=== PATIENT | male | born 1945 | race Caucasian/White ===

== ENCOUNTER 2016-11-23 09:14 | Emergency (ER) | payer MEDICARE, BC ==
[2016-11-23 09:50] VITALS: BP 185/75
--- NOTE | 2016-11-23 10:31 | UC ---
Lower Extremity/Ankle HPI - HPI Summary HPI Summary: Pt presents with c/o right foot pain. that began 1-2 weeks ago. Pt reports that pain began in his right heel, and now is panful along the bottom of his right foot. Pt reports pain is worse in the morning. 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 - Allergies/Home Medications Allergies/Adverse Reactions: Allergies Allergy/AdvReac Type Severity Reaction Status Date / Time No Known Allergies Allergy Verified 11/23/16 09:50 Home Medications: Home Medications Tamsulosin CAP* [Flomax CAP*] 0.4 mg PO DAILY 11/23/16 [History Confirmed ] oxyCODONE/Acetamin 5/325 MG* [Percocet 5/325 TAB*] 1 tab PO DAILY PRN 11/23/16 [ History Confirmed 11/23/16] PMH/Surg Hx/FS Hx/Imm Hx Previously Healthy: Yes - Surgical History Surgical History: Yes Surgery Procedure, Year, and Place: T & A, 1951, [facility]; Right knee replacement , presumably with metal;. had fluid in right lung removed july 2015, right hip replacement Spring 2016 - Family History Known Family History: Positive: Cardiac Disease Family History: R & n/C - Social History Occupation: Retired Lives: With Family Alcohol Use: Rare Substance Use Type: None Smoking Status (MU): Former Smoker Type: Pipe Amount Used/How Often: PIPE Length of Time of Smoking/Using Tobacco: 25 YEARS Have You Smoked in the Last Year: No When Did the Patient Quit Smoking/Using Tobacco: 1994 - Immunization History Most Recent Influenza Vaccination: Fall 2014 Most Recent Tetanus Shot: within last 10 years Most Recent Pneumonia Vaccination: in the last year Review of Systems Constitutional: Negative Skin: Negative Eyes: Negative ENT: Negative Respiratory: Negative Cardiovascular: Negative Gastrointestinal: Negative Genitourinary: Negative Motor: Decreased ROM - right hip, right foot Neurovascular: Negative Musculoskeletal: Arthralgia, Edema - chronic, bilateral,, Myalgia - right foot Neurological: Negative Psychological: Negative All Other Systems Reviewed And Are Negative: Yes Physical Exam Triage Information Reviewed: Yes Appearance: Well-Appearing Vital Signs: Initial Vital Signs Temp 97.8 F 11/23/16 09:42 Pulse 53 11/23/16 09:42 Resp 18 11/23/16 09:42 BP 185/75 11/23/16 09:42 Vital Signs Reviewed: Yes Eye Exam: Normal Dental Exam: Normal Neck exam: Normal Respiratory Exam: Normal Cardiovascular Exam: Normal Musculoskeletal Exam: Other Musculoskeletal: Positive: Strength Limited @ - right hip, Edema @ - bilateral 1 +, right foot, generalized swelling, tenderness right heel across plantar side of foot. Neurological Exam: Normal Psychological Exam: Normal Skin Exam: Normal Lower Extremity Course/Dx - Course Course Of Treatment: Pt has a previous scheduled appointment with Dr. Avalos. I recommended that he keep that appointment or follow up with his PCP or the orthpedic provider who did his right hip surgery in july 2016. Pt stated he wanted to keep his appointment with Dr. Avalos. - Differential Dx/Diagnosis Differential Diagnosis/HQI/PQRI: Gout, Tendonitis Provider Diagnoses: plantar faciitis right foot Discharge - Discharge Plan Condition: Stable Disposition: HOME Patient Education Materials: Plantar Fasciitis Exercises (GEN), Plantar Fasciitis (ED) Referrals: Tereso Avalos MD [Medical Doctor] - Blaine Singh MD [Primary Care Provider] - If Needed Additional Instructions: Please keep your appointment with the orthopedic provider, Dr. Avalos. If unable to keep that appointment please follow up with your PCP or return to clinic.
== END 2016-11-23 10:48 | disposition home or self-care (01) ==
LOC: UCCORT 09:14
DX: M72.2 Plantar fascial fibromatosis (principal); Z86.718 Personal history of other venous thrombosis and embolism; Z79.01 Long term (current) use of anticoagulants; Z96.651 Presence of right artificial knee joint; Z96.641 Presence of right artificial hip joint; Z87.891 Personal history of nicotine dependence
CPT/HCPCS: 99213; G0463

== ENCOUNTER 2017-03-20 09:38 | Emergency (ER) | payer MEDICARE, BC ==
--- NOTE | 2017-03-20 10:15 | UC ---
Respiratory Complaint HPI - HPI Summary HPI Summary: 71 YEAR OLD MALE PRESENTS WITH COMPLAISN OF COUGH, CHEST CONGESTION AND SORE THROAT. - History of Current Complaint Stated Complaint: COUGH, CHEST CONGESTION Time Seen by Provider: 03/20/17 10:14 Hx Obtained From: Patient Onset/Duration: Lasting Days Severity Initially: Moderate Severity Currently: Moderate Pain Scale Used: 0-10 Numeric - 4 Character: Cough: Nonproductive Alleviating Factors: Upright Position Associated Signs And Symptoms: Positive: Nasal Congestion, Sinus Discomfort - Allergies/Home Medications Allergies/Adverse Reactions: Allergies Allergy/AdvReac Type Severity Reaction Status Date / Time No Known Allergies Allergy Verified 03/20/17 10:27 Home Medications: Home Medications Glucosamine Sulfate [Glucosamine] 1,000 mg PO DAILY 03/20/17 [History Confirmed 03/20/17] PMH/Surg Hx/FS Hx/Imm Hx Previously Healthy: Yes - Surgical History Surgical History: Yes Surgery Procedure, Year, and Place: T & A, 1951, [facility]; Right knee replacement , presumably with metal;. had fluid in right lung removed july 2015, right hip replacement Spring 2016 - Family History Known Family History: Positive: None, Cardiac Disease Family History: R & n/C - Social History Alcohol Use: Rare Substance Use Type: None Smoking Status (MU): Former Smoker Type: Pipe Amount Used/How Often: PIPE Length of Time of Smoking/Using Tobacco: 25 YEARS Have You Smoked in the Last Year: No When Did the Patient Quit Smoking/Using Tobacco: 1994 - Immunization History Most Recent Influenza Vaccination: Fall 2014 Most Recent Tetanus Shot: within last 10 years Most Recent Pneumonia Vaccination: in the last year Review of Systems Constitutional: Negative Skin: Negative Eyes: Negative ENT: Sore Throat, Nasal Discharge, Sinus Congestion, Sinus Pain/Tenderness Respiratory: Cough Cardiovascular: Negative Gastrointestinal: Negative Genitourinary: Negative Motor: Negative Neurovascular: Negative Musculoskeletal: Negative Neurological: Negative Psychological: Negative All Other Systems Reviewed And Are Negative: Yes Physical Exam Triage Information Reviewed: Yes Vital Signs Reviewed: Yes Eye Exam: Normal ENT: Positive: Dental tenderness, Sinus tenderness Dental Exam: Normal Neck exam: Normal Neck: Positive: 1 Respiratory: Positive: Rhonchi, Wheezing Cardiovascular Exam: Normal Abdominal Exam: Normal Musculoskeletal Exam: Normal Neurological Exam: Normal Psychological Exam: Normal Skin Exam: Normal Respiratory Course/Dx - Differential Dx/Diagnosis Provider Diagnoses: SINUS CONGESTION. COUGH. CHEST CONGESTION Discharge - Discharge Plan Condition: Stable Disposition: HOME Prescriptions: Albuterol HFA INHALER* [Ventolin HFA Inhaler*] 1 puff INH Q6H PRN #1 mdi PRN Reason: Wheezing Azithromyxin ROBERTO (NF) [Z-Roberto (Zithromax) 250 mg tabs #6] 2 tab PO .TODAY, THEN 1 DAILY #6 tab Guaifenesin-Codeine [Cheratussin AC] 1 teasp PO BEDTIME PRN #120 ml MDD 5 ml PRN Reason: Cough LoraTADine TAB(NF) [Claritin 10 MG TAB(NF)] 10 mg PO DAILY #30 tab Patient Education Materials: Acute Cough (ED) Referrals: Blaine Singh MD [Primary Care Provider] -
[2017-03-20 10:27] VITALS: BP 163/90
== END 2017-03-20 10:38 | disposition home or self-care (01) ==
LOC: UCCORT 09:38
DX: R09.81 Nasal congestion (principal); R05 Cough; R09.89 Other specified symptoms and signs involving the circulatory and respiratory systems; Z87.891 Personal history of nicotine dependence
CPT/HCPCS: 99212; G0463

== ENCOUNTER 2017-11-23 07:01 | Day surgery (SDC) | payer MEDICARE ==
[~2017-11-23 07:01] MED LIST: Buffered Lidocaine 0.9% SYRIN* 5 ML/SYR SYRINGE INTRADERM ONE
[2017-11-23] MEDS ORDERED: ceFAZolin 2 GM PREMIX (*) 2 GM/50 ML BAG IVPB ONE (07:06)
[2017-11-23] MEDS ORDERED: Bupivacaine 0.5% PF 10 ML VIAL INJ ONE (08:48)
[2017-11-23] MEDS ORDERED: Lidocaine 2% PF* 10 ML AMP ONE ×2 (08:49→08:52)
[2017-11-23] MEDS ORDERED: fentaNYL* 50 MCG/ML 2 ML VIAL (100 MCG VIAL) ONE (09:19)
[2017-11-23] MEDS ORDERED: Propofol* 10 MG/ML 20 ML BTL IV PUSH ONE (09:22)
[2017-11-23] MEDS ORDERED: Lidocaine 2% PF * 5 ML VIAL ONE (09:30)
[2017-11-23 10:26] VITALS: BP 136/63
--- NOTE | 2017-11-24 08:49 | OP ---
DATE OF OPERATION: 11/23/17 - [facility] DATE OF : 43 SURGEON: Toni Martini MD SANITATION MANAGER: Jus Torrez PA-C PRE-OP DIAGNOSIS: Rheumatoid arthritis with fixed hammertoe deformity, left 2, 3 and 4 toes. POST-OP DIAGNOSIS: Rheumatoid arthritis with fixed hammertoe deformity, left 2 , 3, and 4 toes. OPERATIVE PROCEDURE: Excisional arthroplasty, left second, third, and fourth proximal interphalangeal joints. DESCRIPTION OF PROCEDURE: The patient was taken to the operating room. Ankle Esmarch applied. We made a transverse elliptical incision over the second, third, and fourth PIP joints. Collateral ligaments were incised to allow visualization of the joint surfaces, which were then removed with the narrow microsagittal saw blade. We then pinned each toe sequentially in full extension using 0.062 C-wires. We irrigated the dorsal wounds closing with nylon, and a compression dressing applied. [id number]/[facility] #: [id number] MTDKim
== END 2017-11-23 10:50 | disposition home or self-care (01) ==
LOC: OR 07:01
PROVIDERS: ATTEND Orthopaedic Surgery
DX: M05.79 Rheumatoid arthritis with rheumatoid factor of multiple sites without organ or systems involvement (principal); M20.42 Other hammer toe(s) (acquired), left foot; I10 Essential (primary) hypertension; E78.00 Pure hypercholesterolemia, unspecified; I25.10 Atherosclerotic heart disease of native coronary artery without angina pectoris; Z87.891 Personal history of nicotine dependence; Z86.718 Personal history of other venous thrombosis and embolism; Z79.01 Long term (current) use of anticoagulants; K21.9 Gastro-esophageal reflux disease without esophagitis
CPT/HCPCS: C1776; J0690; J2001; J2704; J3010